=== PATIENT | male | born 1940 | race Caucasian/White ===

== ENCOUNTER → 2021-02-20 | Outpatient (CLI) | payer MEDICARE, OTHER ==
[~2021-02-20] MED LIST: ASPIRIN E.C. 8181 MG PO; HCTZ; HCTZ 25MG TAB25 MG PO; NORCO 325 MG-51 TAB PO; PROMETHAZINE12.5 M5 PO; PROTONIX 40MG T40 MG PO; PROTONIX40 MG/Pack PO; TOPROL XL 25MG25 MG PO; XANAX 0.5MG0.5 MG PO; ZYLOPRIM 300MG300 MG PO
[2021-02-20 09:10] LABS: ALBUMIN 3.6 gm/dL (3.4-4.8); BILIRUBIN,TOTAL 0.9 mg/dL (0.2-1.2); CALCIUM 9.2 mg/dL (8.4-10.2); CHOLESTEROL RISK RATIO 2.6; CREATININE, serum 1.42 mg/dL (0.72-1.25); POTASSIUM 3.8 mmol/L (3.5-4.5); TOTAL PROTEIN 6.9 gm/dL (6.2-8.1); URIC ACID 5.6 mg/dL (3.5-7.2)
== END ==
LOC: COL.LAB 08:06
PROVIDERS: Family Medicine
DX: E11.9 Type 2 diabetes mellitus without complications (principal); Z01.89 Encounter for other specified special examinations

== ENCOUNTER → 2022-11-22 | Outpatient (CLI) | payer MEDICARE, OTHER | LOC: CANSCHCLI → COL.RAD 08:46 | DX: C18.9 Malignant neoplasm of colon, unspecified (principal); R41.3 Other amnesia; R47.01 Aphasia | CPT/HCPCS: Q9967 ==

== ENCOUNTER 2023-05-26 12:43 | Emergency (ER) | payer MEDICARE, OTHER ==
[~2023-05-26] VITALS: Ht 175.3 cm; Wt 93.6 kg
[2023-05-26 12:49] VITALS: TEMP 98.2
[2023-05-26 13:22] LABS: BASO % 0.2 % (0.0-2.0); EOS # 0.1 K/mm3 (0.0-0.7); EOS % 1.1 % (0.0-4.0); GRAN % 70.4 % (42.2-75.2); HEMATOCRIT 38.7 % (42.0-52.0); HEMOGLOBIN 12.7 g/dl (13.5-18.0); LYMPH # 1.9 K/mm3 (1.2-3.4); MEAN CELL VOLUME 111 fl (80.0-100.0); MEAN CORPUSCULAR HEMOGLOBIN 37 pg (27-31); MEAN CORPUSCULAR HGB CONC 33 g/dl (33.0-37.0); MEAN PLATELET VOLUME 9.8 fl (7.4-10.4); MONO # 0.9 K/mm3 (0.1-0.6); PLATELET COUNT 151 K/mm3 (130-400); RED BLOOD COUNT 3.48 M/mm3 (4.20-5.60); REDCELL DISTRIBUTION WIDTH-CV 13.6 % (11.5-14.5)
[2023-05-26 13:37] LABS: ALBUMIN 3.8 g/dL (3.4-4.8); BILIRUBIN,TOTAL 0.8 mg/dL (0.2-1.2); CALCIUM 9.2 mg/dL (8.4-10.2); CREATININE, serum 1.34 mg/dL (0.72-1.25); POTASSIUM 3.9 mEq/L (3.5-4.5); TOTAL PROTEIN 6.9 g/dl (6.2-8.1)
[2023-05-26 13:43] LABS: TROPONIN-I 0.021 ng/mL (0.00-0.033)
[2023-05-26 14:53] VITALS: BP 121/70; PULSE 64
== END 2023-05-26 15:08 | disposition home or self-care (01) ==
LOC: COL.ER 12:43
PROVIDERS: Emergency Medicine
DX: R07.9 Chest pain, unspecified (principal); I49.1 Atrial premature depolarization; R60.0 Localized edema; Z95.4 Presence of other heart-valve replacement